=== PATIENT | male | born 1985 | race Caucasian/White ===

== ENCOUNTER → 2016-09-01 | Outpatient (REF) | payer BC ==
[~2016-09-01] MED LIST: CIPR500S PO; FLAG500T PO; HYDR12.55 PO; LISI40TAB PO; NICO21DI5 TD; OMEP20CA3 PO; VITA100T2 PO; ZEST1TAB6 PO; ZYLO300T4 PO
[2016-09-01 19:34] LABS: FREE T4 0.92 NG/DL (0.76-1.46)
[2016-09-02 09:17] LABS: THYROID PEROXIDASE ANTIBODY > 1300.0 U/ML (<60.0)
== END ==
LOC: M LABSMT 17:05
PROVIDERS: ATTEND Physician Assistant
DX: E03.9 Hypothyroidism, unspecified (principal)

== ENCOUNTER → 2016-12-01 | Outpatient (CLI) | payer BC ==
[~2016-12-01] MED LIST changes: +LEVO200T4; +LEVO200T4 PO; +LOSA25TA8 PO; +LOSA50TA20; +LOSA50TA20 PO; +METO50TA7; +METO50TA7 PO; +NICO2GUM40; +PRED20TA PO
[2016-12-01 13:24] LABS: FREE T4 0.86 NG/DL (0.76-1.46)
== END ==
LOC: M WUC 09:01
PROVIDERS: ATTEND Physician Assistant
DX: E06.3 Autoimmune thyroiditis (principal)

== ENCOUNTER 2016-12-27 09:51 | Emergency (ER) | payer BC ==
[~2016-12-27] VITALS: Ht 170.2 cm; Wt 99.1 kg
[~2016-12-27 09:51] MED LIST changes: -LEVO200T4; -LEVO200T4 PO; -LOSA25TA8 PO; -LOSA50TA20; -LOSA50TA20 PO; -METO50TA7; -METO50TA7 PO; -NICO2GUM40; -PRED20TA PO
[2016-12-27] MEDS ORDERED: NICO2GUM40 (09:59)
[2016-12-27] MEDS ORDERED: LOSA50TA20 (09:59)
[2016-12-27] MEDS ORDERED: LEVO200T4 (09:59)
[2016-12-27] MEDS ORDERED: METO50TA7 (09:59)
[2016-12-27 11:29] LABS: BASO # 0.1 K/mm3 (0.0-0.2); BASO % 0.7 % (0.0-1.0); EOS # 0.2 K/mm3 (0.0-0.50); EOS % 1.8 % (0.0-3.0); LARGE UNSTAINED CELL # 0.1 K/mm3 (0.0-0.4); LARGE UNSTAINED CELL % 0.7 % (0.0-4.0); LYMPH # 1.4 K/mm3 (1.5-4.5); LYMPH % 14.4 % (24.0-44.0); MEAN CORPUSCULAR HEMOGLOBIN 33.2 pg (27.0-33.0); MEAN CORPUSCULAR HGB CONC 34.9 g/dl (32.0-36.5); MONO # 0.3 K/mm3 (0.0-0.8); MONO % 3.3 % (0.0-5.0); NEUTROPHILS # 7.6 K/mm3 (1.8-7.7); NEUTROPHILS % 79.1 % (36.0-66.0); PLATELET COUNT, AUTOMATED 208 k/mm3 (150-450); RED CELL DISTRIBUTION WIDTH 13.2 % (11.5-14.5); WHITE BLOOD COUNT 9.6 K/mm3 (4.0-10.0)
[2016-12-27 11:47] LABS: ALBUMIN 3.8 GM/DL (3.2-5.2); ALBUMIN/GLOBULIN RATIO 1.12 (1.00-1.93); ALKALINE PHOSPHATASE 87 U/L (45-117); ALT/SGPT 44 U/L (12-78); ANION GAP 7 MEQ/L (8-16); AST/SGOT 31 U/L (15-37); BILIRUBIN,TOTAL 0.4 MG/DL (0.2-1.0); BLOOD UREA NITROGEN 14 MG/DL (7-18); CARBON DIOXIDE LEVEL 27 MEQ/L (21-32); CHLORIDE LEVEL 110 MEQ/L (98-107); GLOMERULAR FILTRATION RATE > 60.0 (>60); GLUCOSE, FASTING 91 MG/DL (70-105); POTASSIUM SERUM 4.3 MEQ/L (3.5-5.1); SODIUM LEVEL 144 MEQ/L (136-145); TOTAL PROTEIN 7.2 GM/DL (6.4-8.2)
[2016-12-27] MEDS ORDERED: GASTROGRAFIN SOLUTION 30ML (Q9963) PO ONE (12:30)
[2016-12-27] MEDS ORDERED: GASTROGRAFIN SOLUTION 30ML PO ONE (13:00)
[2016-12-27] MEDS ORDERED: ISOVUE-370 76% 100ML VIAL (Q9967) As Ordered ONE (14:02)
[2016-12-27 14:18] VITALS: BP 134/82
[2016-12-27] MEDS ORDERED: PRED20TA PO (14:40)
[2016-12-27] MEDS ORDERED: predniSONE 20 MG TAB PO ONE (14:45)
--- NOTE | 2016-12-28 12:37 | REP ---
CT ABDOMEN PELVIS WITH IV AND ORAL CONTRAST: HISTORY: Abdominal pain. Comparison study is from December 20, 2013. CT CONTRAST DOSE: 100 mL of Isovue 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 The lung bases are clear. There is no evidence of pleural effusion or upper abdominal ascites. The liver and the spleen are normal in size and homogeneous in texture. No adrenal lesion is seen. There is an accessory splenule again noted. The kidneys enhance symmetrically and are morphologically intact. No pancreatic or gallbladder abnormality is seen. There is mild diffuse mural thickening involving the sigmoid colon, distal descending colon and the rectosigmoid colon. This may reflect enterocolitis. There is a pattern of some intramural fat in the wall of the remainder the colon. This can be seen in patients with old inflammatory bowel disease. A normal appendix is observed. No obstructive lesion is seen. The small bowel loops are unremarkable today with the exception of the distal most ileal loop which shows mural thickening and some intramural fat as well. The prior CT study showed a more prominent pattern of distal small bowel mural thickening. The distal colonic mural thickening is new. SI joints are unremarkable. There is a bilateral L5 spondylolysis without spondylolisthesis. IMPRESSION: 1. Mural thickening in the distal descending through rectosigmoid segment of the colon; question inflammatory bowel disease. Evidence of old inflammatory bowel disease in the right colon. Some mural thickening and intramural fat in the distal ileum. No obstruction. 2. Bilateral spondylolysis at L5 without spondylolisthesis. 3. Normal appendix. 4. Otherwise unremarkable CT abdomen and pelvis. Signed by Ezio Hamlin MD 12/28/2016 12:41 P
[2017-02-23] MEDS ORDERED: LOSA25TA8 PO (16:55)
[2017-02-23] MEDS ORDERED: METO50TA7 PO (16:55)
[2017-02-23] MEDS ORDERED: LEVO200T4 PO (16:55)
[2017-02-23] MEDS ORDERED: LOSA50TA20 PO (16:55)
== END 2016-12-27 15:03 | disposition home or self-care (01) ==
LOC: M ED 09:51
DX: K58.9 Irritable bowel syndrome, unspecified (principal); F17.210 Nicotine dependence, cigarettes, uncomplicated; Z88.5 Allergy status to narcotic agent; Z88.6 Allergy status to analgesic agent
CPT/HCPCS: 36415; 74177; 80053; 81001; 83690; 85025; 99284; Q9963; Q9967

== ENCOUNTER 2017-03-02 10:38 | Day surgery (SDC) | payer BC ==
[~2017-03-02] VITALS: Ht 170.2 cm; Wt 94.3 kg
[~2017-03-02 10:38] MED LIST changes: +LEVO200T4; +LEVO200T4 PO; +LOSA25TA8 PO; +LOSA50TA20; +LOSA50TA20 PO; +METO50TA7; +METO50TA7 PO; +NICO2GUM40; +PRED20TA PO
[2017-03-02] MEDS ORDERED: NS 1,000 ML IV SCH (11:00)
[2017-03-02] MEDS ORDERED: PROPOFOL 200 MG/20 ML VIAL As Ordered ONE (12:25)
[2017-03-02] MEDS ORDERED: LIDOCAINE 2% INJ 100 MG/5 ML SDV (FOR ANES.) As Ordered ONE (12:25)
--- NOTE | 2017-03-02 12:56 | ROOR ---
Patient Name: Domingo Don Procedure Date: 03/02/2017 12:21 PM Date of : 1985 Age: 32 Room: [facility] Gender: Male Note Status: Finalized Procedure: Colonoscopy Indications: Hematochezia, Abnormal CT of the GI tract Providers: Davey Howe MD Referring MD: LIZANDRO Jones Requesting Provider: Medicines: Monitored Anesthesia Care Complications: No immediate complications. Procedure: Pre-Anesthesia Assessment: - Prior to the procedure, a History and Physical was performed, and patient medications and allergies were reviewed. The patient is competent. The risks and benefits of the procedure and the sedation options and risks were discussed with the patient. All questions were answered and informed consent was obtained. Patient identification and proposed procedure were verified by the physician, the nurse and the shrimp peeling machine operator in the procedure room. Mental Status Examination: alert and oriented. Airway Examination: normal oropharyngeal airway and neck mobility. Respiratory Examination: clear to auscultation. CV Examination: normal. Prophylactic Antibiotics: The patient does not require prophylactic antibiotics. Prior Anticoagulants: The patient has taken no previous anticoagulant or antiplatelet agents. ASA Grade Assessment: II - A patient with mild systemic disease. After reviewing the risks and benefits, the patient was deemed in satisfactory condition to undergo the procedure. The anesthesia plan was to use monitored anesthesia care (MAC). Immediately prior to administration of medications, the patient was re-assessed for adequacy to receive sedatives. The heart rate, respiratory rate, oxygen saturations, blood pressure, adequacy of pulmonary ventilation, and response to care were monitored throughout the procedure. The physical status of the patient was re-assessed after the procedure. The Colonoscope was introduced through the anus and advanced to the terminal ileum, with identification of the appendiceal orifice and IC valve. The colonoscopy was performed without difficulty. The patient tolerated the procedure well. The quality of the bowel preparation was adequate to identify polyps 6 mm and larger in size and fair. The terminal ileum, ileocecal valve, appendiceal orifice, and rectum were photographed. Scope insertion time was 2 minutes. Scope withdrawal time was 8 minutes. The total duration of the procedure was 10 minutes. Findings: The perianal and digital rectal examinations were normal. Two sessile polyps were found in the descending colon. The polyps were 3 to 4 mm in size. These polyps were removed with a cold biopsy forceps. Resection and retrieval were complete. Verification of patient identification for the specimen was done by the physician and nurse using the patient's name, date and medical record number. Estimated blood loss was minimal. A 5 mm polyp was found in the sigmoid colon. The polyp was sessile. The polyp was removed with a cold biopsy forceps. Resection and retrieval were complete. Non-bleeding external and internal hemorrhoids were found during retroflexion. The hemorrhoids were medium-sized. Impression: - Preparation of the colon was fair. - Two 3 to 4 mm polyps in the descending colon, removed with a cold biopsy forceps. Resected and retrieved. - One 5 mm polyp in the sigmoid colon, removed with a cold biopsy forceps. Resected and retrieved. - Non-bleeding external and internal hemorrhoids. Recommendation: - Patient has a contact number available for emergencies. The signs and symptoms of potential delayed complications were discussed with the patient. Return to normal activities tomorrow. Written discharge instructions were provided to the patient. - Resume previous diet. - Continue present medications. - Await pathology results. - Repeat colonoscopy in 5-10 years for surveillance based on pathology results. - Return to GI clinic as previously scheduled on 03/24/2017 at 10:00 AM. - Return to primary care physician. Davey Howe MD Davey Howe MD 03/02/2017 12:55:54 PM This report has been signed electronically. Number of Addenda: 0 Note Initiated On: 03/02/2017 12:21 PM Estimated Blood Loss: Estimated blood loss was minimal.
[2017-03-02 13:10] VITALS: BP 139/100
== END 2017-03-02 13:21 | disposition home or self-care (01) ==
LOC: M OPP 10:38 → EDSTATUS 14:30
PROVIDERS: ATTEND Internal Medicine Gastroenterology
DX: K92.1 Melena (principal); K64.8 Other hemorrhoids; K63.5 Polyp of colon; R93.3 Abnormal findings on diagnostic imaging of other parts of digestive tract; I10 Essential (primary) hypertension; K21.9 Gastro-esophageal reflux disease without esophagitis; M10.9 Gout, unspecified; G47.30 Sleep apnea, unspecified; E03.9 Hypothyroidism, unspecified; F17.210 Nicotine dependence, cigarettes, uncomplicated; I25.10 Atherosclerotic heart disease of native coronary artery without angina pectoris; Z85.118 Personal history of other malignant neoplasm of bronchus and lung; Z79.899 Other long term (current) drug therapy; Z88.6 Allergy status to analgesic agent; Z88.5 Allergy status to narcotic agent

== ENCOUNTER → 2018-05-24 | Outpatient (REF) | payer BC ==
[~2018-05-24] MED LIST changes: +LOSA25TA14 PO; -LOSA25TA8 PO; -LOSA50TA20; -LOSA50TA20 PO; +LOSA50TA88; +LOSA50TA88 PO; -NICO21DI5 TD; +NICO21DI6 TD; -VITA100T2 PO; +VITA100T8 PO; -ZYLO300T4 PO; +ZYLO300T6 PO
[2018-05-25 14:08] LABS: FREE T4 0.34 NG/DL (0.76-1.46); THYROID STIMULATING HORMONE 67.7 uIU/ML (0.358-3.740)
== END ==
LOC: M LAB REF 13:12
PROVIDERS: ATTEND Internal Medicine Nephrology
DX: E03.9 Hypothyroidism, unspecified (principal)

== ENCOUNTER → 2019-08-16 | Outpatient (REF) | payer BC ==
[~2019-08-16] MED LIST changes: +LISI40TA52 PO; -LISI40TAB PO; +OMEP1CAP73 PO; -OMEP20CA3 PO
[2019-08-16 13:48] LABS: FREE T4 1.47 NG/DL (0.76-1.46); THYROID STIMULATING HORMONE 2.89 uIU/ML (0.358-3.740)
== END ==
LOC: M LAB REF 12:45
PROVIDERS: ATTEND Nurse Practitioner Family
DX: E03.9 Hypothyroidism, unspecified (principal)

== ENCOUNTER → 2020-09-03 | Outpatient (CLI) | payer BC ==
--- NOTE | 2020-09-03 10:29 | REP ---
INDICATION: CHRONIC KIDNEY DISEASE, STAGE 2,NEOPLASM OF UNCERTAIN. COMPARISON: None. TECHNIQUE: Real-time sonographic evaluation of thyroid performed. FINDINGS: Right lobe of thyroid measures 4.1 x 1.6 x 1.5 cm and left lobe 4.0 x 1.4 x 1.4 cm. Both lobes are markedly heterogeneous in echotexture. An ill-defined nodule is seen in the mid right lobe measuring 9 mm in diameter. No other definite focal nodule is seen bilaterally. IMPRESSION: Heterogeneous nonenlarged thyroid. Ill-defined hypoechoic nodule mid right lobe measures 9 mm in maximum diameter. According to TI-RADS criteria this is a TR 4 lesion and no follow-up is needed since it is less than 1 cm in diameter. <Electronically signed by Jamin San > 09/03/20 [id number]
--- NOTE | 2020-09-03 10:36 | REP ---
INDICATION: CHRONIC KIDNEY DISEASE, STAGE 2,NEOPLASM OF uncertain behavior. COMPARISON: 11/30/2014 TECHNIQUE: Real-time sonographic evaluation of the kidneys is performed. Duplex Doppler evaluation of renal arteries. FINDINGS: Renal cortical echogenicity pattern is normal bilaterally and contours are smooth. There is no evidence of hydronephrosis, cyst, mass, or calculus in either kidney. The right kidney measures 11.3 x 6.1 x 5.6 cm. Left renal dimensions are 11.4 x 6.1 x 6.2 cm. Urinary bladder is not well distended. Ureteral jets are not seen in the urinary bladder with Doppler color evaluation. Duplex Doppler evaluation of renal arteries demonstrates no compelling duplex Doppler sonographic evidence of hemodynamically significant stenosis of the renal arteries bilaterally. The peak systolic velocity of the abdominal aorta at the level of the renal arteries is 109.4 centimeters/second. The peak systolic velocity of the main right renal artery is 90.2 centimeters/second, renal to aortic ratio 0.8. Resistive indices right kidney range between 0.57 and 0.60. Acceleration times range between 0.028 and 0.034. Peak systolic velocity of the main left renal artery is 88.2 centimeter/second, renal to aortic ratio 0.8. Resistive indices left kidney range between 0.48 and 0.56. Acceleration times range between 0.008 and 0.041. IMPRESSION: No renal abnormalities. No compelling duplex Doppler sonographic evidence of hemodynamically significant stenosis of the renal arteries bilaterally. <Electronically signed by Jamin San > 09/03/20 [id number]
== END ==
LOC: M RAD 09:33
PROVIDERS: ATTEND Nurse Practitioner Family
DX: N18.2 Chronic kidney disease, stage 2 (mild) (principal); D44.0 Neoplasm of uncertain behavior of thyroid gland; I12.9 Hypertensive chronic kidney disease with stage 1 through stage 4 chronic kidney disease, or unspecified chronic kidney disease

== ENCOUNTER 2021-02-02 13:54 | Emergency (ER) | payer BC ==
[~2021-02-02] VITALS: Ht 172.7 cm; Wt 92.1 kg
[2021-02-02] MEDS ORDERED: AMLO1TAB24 (14:16)
[2021-02-02] MEDS ORDERED: LOSA100T5 (14:16)
[2021-02-02] MEDS ORDERED: METO1TAB7 (14:16)
[2021-02-02] MEDS ORDERED: ALLO300T2 (14:16)
[2021-02-02 15:46] LABS: BASO # 0.1 10^3/uL (0.0-0.2); BASO % 0.4 % (0.0-1.0); EOS # 0.2 10^3/uL (0.0-0.5); EOS % 1.3 % (0.0-3.0); HEMATOCRIT 52.1 % (42.0-52.0); HEMOGLOBIN 17.7 g/dl (13.5-17.5); LYMPH # 1.9 10^3/uL (1.5-5.0); LYMPH % 11.7 % (24.0-44.0); MEAN CORPUSCULAR HEMOGLOBIN 32.2 pg (27.0-33.0); MEAN CORPUSCULAR VOLUME 94.7 fl (80.0-96.0); MONO # 0.9 10^3/uL (0.0-0.8); MONO % 5.7 % (2.0-8.0); NEUTROPHILS # 12.7 10^3/uL (1.5-8.5); NEUTROPHILS % 80.1 % (36.0-66.0); PLATELET COUNT, AUTOMATED 258 10^3/uL (150-450); WHITE BLOOD COUNT 15.8 10^3/uL (4.0-10.0)
[2021-02-02 16:18] LABS: BILIRUBIN,DIRECT 0.2 MG/DL (0.0-0.2); BILIRUBIN,TOTAL 0.6 MG/DL (0.2-1.0); C REACTIVE PROTEIN QUANTITATIV 1.51 MG/DL (0.00-0.30); TOTAL PROTEIN 7.7 GM/DL (6.4-8.2)
[2021-02-02] MEDS ORDERED: NS 1,000 ML IV ONE (16:25)
[2021-02-02] MEDS ORDERED: ONDANSETRON 4MG/2ML VIAL IV ONE (16:25)
[2021-02-02] MEDS ORDERED: MORPHINE 2 MG/ML 1ML VIAL (J2270) IV ONE (16:25)
[2021-02-02] MEDS ORDERED: KETOROLAC 30 MG/ML 1ML VIAL IV ONE ×2 (16:25→16:30)
[2021-02-02] MEDS: GASTROGRAFIN SOLUTION 30ML PO SCH ×2 (17:34→17:58)
[2021-02-02] MEDS ORDERED: ISOVUE-370 76% 100ML VIAL As Ordered ONE (18:38)
--- NOTE | 2021-02-02 20:23 | REPVR ---
PROCEDURE INFORMATION: Exam: CT Abdomen And Pelvis With Contrast Exam date and time: 02/02/2021 6:41 PM Age: 36 years old Clinical indication: Abdominal pain; Additional info: Po and iv, abdominal pain, nausea, diarrhea TECHNIQUE: Imaging protocol: Computed tomography of the abdomen and pelvis with contrast. Axial, coronal and sagittal reformatted images were created and reviewed. Radiation optimization: All CT scans at this facility use at least one of these dose optimization techniques: automated exposure control; mA and/or kV adjustment per patient size (includes targeted exams where dose is matched to clinical indication); or iterative reconstruction. Contrast material: ISOVUE 370; Contrast volume: 100 ml; Contrast route: INTRAVENOUS (IV); COMPARISON: CT ABD/PEL W/IV ORAL CONTRAS 12/27/2016 1:59 PM FINDINGS: Lungs: Minimal linear stranding and groundglass at the left lung base, likely due to atelectasis and/or scarring. Liver: Mild hepatomegaly. Gallbladder and bile ducts: No radiodense gallstones. No biliary ductal dilatation. Pancreas: Unremarkable. Spleen: Unremarkable. Adrenal glands: Normal. No mass. Kidneys and ureters: No mass. No radiodense calculi. No hydronephrosis. Stomach and bowel: Moderately long segment of moderate to severe distal/terminal ileal wall thickening with associated mural edema, luminal narrowing and mesenteric edema. Submucosal fat deposition in the colon, consistent with chronic inflammation. Questionable mild superimposed colonic wall thickening. No obstruction. No pneumatosis. Appendix: Normal. Intraperitoneal space: Trace ascites. No organized collection. No free air. Vasculature: Unremarkable. No aneurysm. Lymph nodes: No pathologically enlarged lymph nodes. Urinary bladder: Unremarkable as visualized. Reproductive: Unremarkable. Bones/joints: No acute osseous abnormality. Mild degenerative changes. Soft tissues: Unremarkable. IMPRESSION: 1. Nonspecific distal/terminal ileitis and possible mild acute on chronic colitis, as described above. 2. Additional findings, as above. Electronically signed by: Mark Rodriguez On 02/02/2021 20:22:29 PM
[2021-02-02] MEDS ORDERED: PRED20TA PO (21:23)
[2021-02-02] MEDS ORDERED: methylPREDNISolone 125MG 2ML VIAL IV ONE (21:25)
[2021-02-02 22:00] VITALS: BP 139/93
--- NOTE | 2021-02-03 05:59 | ECGEPIP ---
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
== END 2021-02-02 22:01 | disposition home or self-care (01) ==
LOC: M ED 13:54
DX: K51.918 Ulcerative colitis, unspecified with other complication (principal); R19.7 Diarrhea, unspecified; I10 Essential (primary) hypertension; F17.200 Nicotine dependence, unspecified, uncomplicated; Z88.6 Allergy status to analgesic agent
CPT/HCPCS: 74177; 80047; 80076; 81001; 83605; 83690; 85025; 86140; 87505; 93005; 96361; 96374; 96375; 99284; J1885; J2405; J2930; Q9963; Q9967

== ENCOUNTER → 2022-05-13 | Outpatient (REF) | payer BC ==
[~2022-05-13] MED LIST changes: +ALLO300T2; +AMLO1TAB24; +LOSA100T5; +LOSA25TA13 PO; -LOSA25TA14 PO; +LOSA50TA28; +LOSA50TA28 PO; -LOSA50TA88; -LOSA50TA88 PO; +METO1TAB7
[2022-05-13 17:34] LABS: HEMATOCRIT 49.3 % (42.0-52.0); HEMOGLOBIN 17.1 g/dl (13.5-17.5); MEAN CORPUSCULAR HEMOGLOBIN 34.7 pg (27.0-33.0); MEAN CORPUSCULAR HGB CONC 34.7 g/dl (32.0-36.5); PLATELET COUNT, AUTOMATED 198 10^3/uL (150-450); RED BLOOD COUNT 4.93 10^6/uL (4.30-6.10); WHITE BLOOD COUNT 13.5 10^3/uL (4.0-10.0)
[2022-05-13 17:58] LABS: ALBUMIN 4.1 G/DL (3.2-5.2); ALKALINE PHOSPHATASE 87 U/L (46-116); ALT/SGPT 20 U/L (7.0-40); AST/SGOT 22 U/L (<34); BILIRUBIN,TOTAL 1.1 MG/DL (0.3-1.2); BLOOD UREA NITROGEN 13 MG/DL (9-23); CALCIUM LEVEL 9.4 MG/DL (8.5-10.1); CARBON DIOXIDE LEVEL 24 MMOL/L (20-31); CHLORIDE LEVEL 96 MMOL/L (98-107); CHOLESTEROL LEVEL 167 MG/DL (<200); CREATININE FOR GFR 0.82 MG/DL (0.70-1.30); GLOMERULAR FILTRATION RATE > 60.0 (>60); GLUCOSE, FASTING 77 MG/DL (60-100); HDL CHOLESTEROL 66.6 MG/DL (>40); NON-HDL-C 100 MG/DL; POTASSIUM SERUM 3.5 MMOL/L (3.5-5.1); SODIUM LEVEL 135 MMOL/L (136-145); TOTAL 25(OH) VITAMIN D 10.2 NG/ML (20.0-100.0); TOTAL PROTEIN 7.1 G/DL (5.7-8.2); TRIGLYCERIDES LEVEL 302 MG/DL (<150)
[2022-05-13 17:59] LABS: THYROID STIMULATING HORMONE 5.078 uIU/ML (0.55-4.78)
[2022-05-13 18:10] LABS: URIC ACID 5.9 MG/DL (3.7-9.2)
== END ==
LOC: M LAB REF 16:21
PROVIDERS: ATTEND Physician Assistant
DX: E55.9 Vitamin D deficiency, unspecified (principal); I10 Essential (primary) hypertension; E03.9 Hypothyroidism, unspecified; M10.9 Gout, unspecified

== ENCOUNTER → 2022-08-13 | Outpatient (REF) | payer BC ==
[2022-08-13 18:22] LABS: BASO # 0.1 10^3/uL (0.0-0.2); BASO % 0.8 % (0.0-1.0); EOS # 0.1 10^3/uL (0.0-0.5); EOS % 1.4 % (0.0-3.0); HEMATOCRIT 47.2 % (42.0-52.0); HEMOGLOBIN 15.9 g/dl (13.5-17.5); LYMPH # 1.7 10^3/uL (1.5-5.0); LYMPH % 19.6 % (24.0-44.0); MEAN CORPUSCULAR HEMOGLOBIN 33.8 pg (27.0-33.0); MEAN CORPUSCULAR HGB CONC 33.7 g/dl (32.0-36.5); MEAN CORPUSCULAR VOLUME 100.2 fl (80.0-96.0); MONO # 0.5 10^3/uL (0.0-0.8); MONO % 5.3 % (2.0-8.0); NEUTROPHILS # 6.1 10^3/uL (1.5-8.5); NEUTROPHILS % 72.1 % (36.0-66.0); PLATELET COUNT, AUTOMATED 238 10^3/uL (150-450); RED BLOOD COUNT 4.71 10^6/uL (4.30-6.10); WHITE BLOOD COUNT 8.5 10^3/uL (4.0-10.0)
[2022-08-13 18:37] LABS: BLOOD UREA NITROGEN 14 MG/DL (9-23); CALCIUM LEVEL 9.4 MG/DL (8.5-10.1); CARBON DIOXIDE LEVEL 25 MMOL/L (20-31); CHLORIDE LEVEL 106 MMOL/L (98-107); CREATININE FOR GFR 0.82 MG/DL (0.70-1.30); GLOMERULAR FILTRATION RATE > 60.0 (>60); GLUCOSE, FASTING 85 MG/DL (60-100); POTASSIUM SERUM 4.7 MMOL/L (3.5-5.1); SODIUM LEVEL 139 MMOL/L (136-145)
[2022-08-13 18:38] LABS: THYROID STIMULATING HORMONE 0.202 uIU/ML (0.55-4.78); TOTAL 25(OH) VITAMIN D 19.2 NG/ML (20.0-100.0)
[2022-08-13 18:39] LABS: FOLATE 8.9 NG/ML (>5.4); VITAMIN B12 LEVEL 319 PG/ML (211-911)
== END ==
LOC: M LAB REF 16:27
PROVIDERS: ATTEND Physician Assistant
DX: F10.10 Alcohol abuse, uncomplicated (principal); R71.8 Other abnormality of red blood cells; E55.9 Vitamin D deficiency, unspecified; E03.9 Hypothyroidism, unspecified

== ENCOUNTER → 2022-10-28 | Outpatient (REF) | payer BC ==
[2022-10-28 17:23] LABS: FREE T4 1.06 NG/DL (0.89-1.76); THYROID STIMULATING HORMONE 13.984 uIU/ML (0.55-4.78); TOTAL 25(OH) VITAMIN D 20.1 NG/ML (20.0-100.0)
[2022-10-28 17:48] LABS: HIV 1&2 SCREEN NEGATIVE (NEGATIVE)
[2022-10-28 18:10] LABS: THYROID PEROXIDASE ANTIBODY > 1300.0 U/ML (<60.0)
== END ==
LOC: M LAB REF 16:34
PROVIDERS: ATTEND Physician Assistant
DX: E03.9 Hypothyroidism, unspecified (principal); E55.9 Vitamin D deficiency, unspecified; Z11.4 Encounter for screening for human immunodeficiency virus [HIV]

== ENCOUNTER → 2023-04-26 | Outpatient (REF) | payer BC ==
[2023-04-26 18:06] LABS: HEMOGLOBIN A1c 4.6 % (4.0-6.0)
[2023-04-26 18:20] LABS: ALKALINE PHOSPHATASE 60 U/L (46-116); ALT/SGPT 19 U/L (7.0-40); AST/SGOT 24 U/L (<34); BILIRUBIN,TOTAL 0.4 MG/DL (0.3-1.2); BLOOD UREA NITROGEN 13 MG/DL (9-23); CALCIUM LEVEL 9.3 MG/DL (8.5-10.1); CARBON DIOXIDE LEVEL 24 MMOL/L (20-31); CHLORIDE LEVEL 105 MMOL/L (98-107); CHOLESTEROL LEVEL 146 MG/DL (<200); CHOLESTEROL RISK RATIO 2.06 (<5); CREATININE FOR GFR 0.76 MG/DL (0.70-1.30); GLOMERULAR FILTRATION RATE > 60.0 (>60); GLUCOSE, FASTING 93 MG/DL (60-100); HDL CHOLESTEROL 70.7 MG/DL (>40); LDL CHOLESTEROL 40.9 MG/DL (<100); MAGNESIUM LEVEL 1.9 MG/DL (1.8-2.4); NON-HDL-C 75.3 MG/DL; POTASSIUM SERUM 4.5 MMOL/L (3.5-5.1); SODIUM LEVEL 137 MMOL/L (136-145); TOTAL PROTEIN 6.6 G/DL (5.7-8.2); TRIGLYCERIDES LEVEL 172 MG/DL (<150)
== END ==
LOC: M LAB REF 17:29
PROVIDERS: ATTEND Nurse Practitioner Family
DX: E78.1 Pure hyperglyceridemia (principal); I10 Essential (primary) hypertension; E03.8 Other specified hypothyroidism; Z13.1 Encounter for screening for diabetes mellitus

== ENCOUNTER 2023-09-21 15:08 | Emergency (ER) | payer BC ==
[~2023-09-21] VITALS: Ht 172.7 cm; Wt 91.6 kg
[2023-09-21] MEDS ORDERED: LOPI600T PO (15:18)
[2023-09-21 16:38] LABS: BASO % 0.3 % (0.0-1.0); EOS % 0.1 % (0.0-3.0); HEMATOCRIT 41.9 % (42.0-52.0); HEMOGLOBIN 15.1 g/dl (13.5-17.5); LYMPH # 1.3 10^3/uL (1.5-5.0); LYMPH % 9.7 % (24.0-44.0); MEAN CORPUSCULAR HEMOGLOBIN 34.6 pg (27.0-33.0); MEAN CORPUSCULAR VOLUME 96.1 fl (80.0-96.0); MONO # 0.7 10^3/uL (0.0-0.8); MONO % 5.4 % (2.0-8.0); NEUTROPHILS # 11.5 10^3/uL (1.5-8.5); NEUTROPHILS % 84.2 % (36.0-66.0); PLATELET COUNT, AUTOMATED 254 10^3/uL (150-450); RED BLOOD COUNT 4.36 10^6/uL (4.30-6.10); WHITE BLOOD COUNT 13.7 10^3/uL (4.0-10.0)
[2023-09-21 16:43] LABS: ERYTHROCYTE SEDIMENTATION RATE 6 mm/hr (0-15)
[2023-09-21 17:06] LABS: C REACTIVE PROTEIN QUANTITATIV < 0.40 MG/DL (<1.0)
[2023-09-21 17:07] LABS: BLOOD UREA NITROGEN 17 MG/DL (9-23); CALCIUM LEVEL 9.2 MG/DL (8.5-10.1); CARBON DIOXIDE LEVEL 24 MMOL/L (20-31); CHLORIDE LEVEL 107 MMOL/L (98-107); CREATININE FOR GFR 1.05 MG/DL (0.70-1.30); GLOMERULAR FILTRATION RATE > 60.0 (>60); GLUCOSE, FASTING 90 MG/DL (60-100); POTASSIUM SERUM 3.8 MMOL/L (3.5-5.1); SODIUM LEVEL 141 MMOL/L (136-145)
[2023-09-21 18:43] LABS: CK-MB VALUE MASS < 1.0 NG/ML (<3.6)
[2023-09-21 18:54] LABS: THYROID STIMULATING HORMONE 0.411 uIU/ML (0.55-4.78)
[2023-09-21 18:55] LABS: FREE T4 1.18 NG/DL (0.89-1.76)
[2023-09-21 19:01] LABS: CPK CREATINE PHOSPHOKINASE 69 U/L (46-171); MB/CK RELATIVE INDEX 1.44 (< OR =4)
[2023-09-21 20:20] VITALS: BP 156/98; TEMP 98.9; O2SAT 97
[2023-09-21] MEDS ORDERED: DOXY-323 PO (20:34)
[2023-09-21] MEDS: DOXYCYCLINE HYCLATE 100MG TABLET PO ONE (21:05)
== END 2023-09-21 21:06 | disposition home or self-care (01) ==
LOC: M ED 15:08
DX: S20.96XA Insect bite (nonvenomous) of unspecified parts of thorax, initial encounter (principal); R60.9 Edema, unspecified; I10 Essential (primary) hypertension; K21.9 Gastro-esophageal reflux disease without esophagitis; E03.9 Hypothyroidism, unspecified; N17.1 Acute kidney failure with acute cortical necrosis; F17.200 Nicotine dependence, unspecified, uncomplicated; F12.10 Cannabis abuse, uncomplicated; F10.10 Alcohol abuse, uncomplicated; Z88.5 Allergy status to narcotic agent; Z88.6 Allergy status to analgesic agent; Z79.899 Other long term (current) drug therapy; Z79.811 Long term (current) use of aromatase inhibitors; Y92.9 Unspecified place or not applicable; Y93.9 Activity, unspecified; Y99.9 Unspecified external cause status

== ENCOUNTER → 2023-12-01 | Outpatient (REF) | payer BC ==
[~2023-12-01] MED LIST changes: +DOXY-323 PO; +LOPI600T PO
[2023-12-01 19:08] LABS: BLOOD UREA NITROGEN 17 MG/DL (9-23); CALCIUM LEVEL 9.1 MG/DL (8.5-10.1); CARBON DIOXIDE LEVEL 24 MMOL/L (20-31); CHLORIDE LEVEL 106 MMOL/L (98-107); GLOMERULAR FILTRATION RATE 55.5 (>60); GLUCOSE, FASTING 75 MG/DL (60-100); POTASSIUM SERUM 3.1 MMOL/L (3.5-5.1); SODIUM LEVEL 140 MMOL/L (136-145)
[2023-12-01 19:15] LABS: THYROID STIMULATING HORMONE > 150.000 uIU/ML (0.55-4.78)
== END ==
LOC: M LAB REF 17:05
PROVIDERS: ATTEND Physician Assistant
DX: E06.3 Autoimmune thyroiditis (principal); I12.9 Hypertensive chronic kidney disease with stage 1 through stage 4 chronic kidney disease, or unspecified chronic kidney disease; R60.0 Localized edema

== ENCOUNTER → 2024-01-05 | Outpatient (CLI) | payer BC | LOC: M SLEEP HO 11:43 | PROVIDERS: ATTEND Physician Assistant | DX: R06.81 Apnea, not elsewhere classified (principal) ==

== ENCOUNTER → 2024-01-31 | Outpatient (CLI) | payer BC ==
[2024-01-31 17:06] LABS: FREE T4 1.06 NG/DL (0.89-1.76)
[2024-01-31 17:07] LABS: THYROID STIMULATING HORMONE 47.082 uIU/ML (0.55-4.78)
== END ==
LOC: M WUC 14:20
PROVIDERS: ATTEND Nurse Practitioner Family
DX: E03.9 Hypothyroidism, unspecified (principal)

== ENCOUNTER → 2024-03-21 | Outpatient (CLI) | payer BC ==
[~2024-03-21] MED LIST changes: -DOXY-323 PO; +DOXY-441 PO
== END ==
LOC: M RAD 11:11
PROVIDERS: ATTEND Nurse Practitioner Family
DX: E04.1 Nontoxic single thyroid nodule (principal)

== ENCOUNTER → 2024-04-10 | Outpatient (REF) | payer BC ==
[2024-04-10 20:47] LABS: FREE T4 1.13 NG/DL (0.89-1.76)
[2024-04-10 20:49] LABS: THYROID STIMULATING HORMONE 10.474 uIU/ML (0.55-4.78)
== END ==
LOC: M LABWUC 16:46 → M LAB REF 16:46
PROVIDERS: ATTEND Nurse Practitioner Family
DX: E06.3 Autoimmune thyroiditis (principal)

== ENCOUNTER → 2024-04-26 | Outpatient (CLI) | payer BC ==
[~2024-04-26] MED LIST changes: -ALLO300T2; +ALLO300T2 PO; -AMLO1TAB24; +AMLO1TAB24 PO; +CEFD1CAP9 PO; +DOXY100T PO; +FURO20TA2 PO; +LEVO150T7 PO; +LOSA100T46 PO; -METO1TAB7; +METO1TAB7 PO; +POTA-298 PO
== END ==
LOC: M SLEEP 20:00
PROVIDERS: ATTEND Physician Assistant
DX: G47.33 Obstructive sleep apnea (adult) (pediatric) (principal)

== ENCOUNTER 2024-04-30 11:19 | Inpatient (IN) | payer BC ==
[~2024-04-30] VITALS: Ht 157.5 cm; Wt 92.4 kg
[~2024-04-30 11:19] MED LIST changes: -FURO20TA2 PO; -LEVO150T7 PO; -LOSA100T46 PO; -POTA-298 PO
[2024-04-30] MEDS: NS (Normal Saline) 0.9% 1,000 ML IV ONE ×2 (11:52→14:58)
[2024-04-30] MEDS: ACETAMINOPHEN 325 MG TAB PO ONE (11:52)
[2024-04-30 12:19] LABS: BASO # 0.1 10^3/uL (0.0-0.2); BASO % 0.4 % (0.0-1.0); EOS % 0.1 % (0.0-3.0); HEMATOCRIT 34.3 % (42.0-52.0); HEMOGLOBIN 12.2 g/dl (13.5-17.5); LYMPH # 0.4 10^3/uL (1.5-5.0); LYMPH % 2.6 % (24.0-44.0); MEAN CORPUSCULAR HEMOGLOBIN 33.7 pg (27.0-33.0); MEAN CORPUSCULAR HGB CONC 35.6 g/dl (32.0-36.5); MEAN CORPUSCULAR VOLUME 94.8 fl (80.0-96.0); MONO # 0.5 10^3/uL (0.0-0.8); MONO % 3.1 % (2.0-8.0); NEUTROPHILS # 14.4 10^3/uL (1.5-8.5); NEUTROPHILS % 92.5 % (36.0-66.0); PLATELET COUNT, AUTOMATED 146 10^3/uL (150-450); RED BLOOD COUNT 3.62 10^6/uL (4.30-6.10); WHITE BLOOD COUNT 15.6 10^3/uL (4.0-10.0)
[2024-04-30] MEDS: cefTRIAXone SOD 1 GM in DEXTROSE 5% (D5W) ADV/MINI-BAG 50 ML IV ONE (12:54)
[2024-04-30] MEDS: AZITHROMYCIN 250MG TABLET PO ONE (12:55)
[2024-04-30] MEDS ORDERED: cefTRIAXone SOD 1 GM in DEXTROSE 5% (D5W) ADV/MINI-BAG 50 ML IV SCH (13:00)
[2024-04-30 13:52] LABS: ALBUMIN 2.4 G/DL (3.2-5.2); ALKALINE PHOSPHATASE 48 U/L (40-129); ALT/SGPT 38 U/L (7.0-40); AST/SGOT 149 U/L (<34); BILIRUBIN,DIRECT 0.3 MG/DL (<0.4); BILIRUBIN,TOTAL 0.5 MG/DL (0.3-1.2); BLOOD UREA NITROGEN 13 MG/DL (9-23); CALCIUM LEVEL 8.2 MG/DL (8.5-10.1); CARBON DIOXIDE LEVEL 21 MMOL/L (20-31); CHLORIDE LEVEL 97 MMOL/L (98-107); CREATININE FOR GFR 1.13 MG/DL (0.70-1.30); GLOMERULAR FILTRATION RATE > 60.0 (>60); GLUCOSE, FASTING 126 MG/DL (60-100); POTASSIUM SERUM 3.2 MMOL/L (3.5-5.1); SODIUM LEVEL 129 MMOL/L (136-145); TOTAL PROTEIN 5.9 G/DL (5.7-8.2)
[2024-04-30] MEDS: POTASSIUM CHLORIDE 10MEQ SR TABLET PO ONE (14:57)
[2024-04-30] MEDS ORDERED: LEVO150T7 PO (15:31)
[2024-04-30] MEDS ORDERED: POTA-298 PO (15:31)
[2024-04-30] MEDS ORDERED: LOSA100T46 PO (15:31)
[2024-04-30] MEDS ORDERED: FURO20TA2 PO (15:31)
[2024-04-30] MEDS ORDERED: HOME MED LIST COMPLETE! XX SCH (15:35)
[2024-04-30] MEDS ORDERED: MOM 30ML SUSPENSION UDC PO PRN (16:15)
[2024-04-30] MEDS: ACETAMINOPHEN 325 MG TAB PO PRN (16:47)
[2024-04-30] MEDS: ACETAMINOPHEN *IV* 1,000 MG in IV 1 EA IV ONE (17:55)
[2024-04-30 23:20] VITALS: BP 146/93; TEMP 101.9; O2SAT 94
[2024-05-01] VITALS (20 sets, daily range): BP systolic 116–144; BP diastolic 66–88; TEMP 97.8–104.1; O2SAT 87–94
[2024-05-01] MEDS: LEVOTHYROXINE 150MCG TABLET (0.15MG) PO SCH (05:55)
[2024-05-01 06:00] LABS: HEMATOCRIT 34.4 % (42.0-52.0); HEMOGLOBIN 11.9 g/dl (13.5-17.5); MEAN CORPUSCULAR HEMOGLOBIN 33.4 pg (27.0-33.0); MEAN CORPUSCULAR HGB CONC 34.6 g/dl (32.0-36.5); MEAN CORPUSCULAR VOLUME 96.6 fl (80.0-96.0); PLATELET COUNT, AUTOMATED 150 10^3/uL (150-450); RED BLOOD COUNT 3.56 10^6/uL (4.30-6.10); WHITE BLOOD COUNT 10.4 10^3/uL (4.0-10.0)
[2024-05-01 06:19] LABS: ALBUMIN 2.2 G/DL (3.2-5.2); ALKALINE PHOSPHATASE 58 U/L (40-129); ALT/SGPT 43 U/L (7.0-40); AST/SGOT 137 U/L (<34); BILIRUBIN,TOTAL 0.4 MG/DL (0.3-1.2); BLOOD UREA NITROGEN 14 MG/DL (9-23); CALCIUM LEVEL 8.8 MG/DL (8.5-10.1); CARBON DIOXIDE LEVEL 20 MMOL/L (20-31); CHLORIDE LEVEL 103 MMOL/L (98-107); CREATININE FOR GFR 0.99 MG/DL (0.70-1.30); GLOMERULAR FILTRATION RATE > 60.0 (>60); GLUCOSE, FASTING 114 MG/DL (60-100); POTASSIUM SERUM 3.4 MMOL/L (3.5-5.1); SODIUM LEVEL 134 MMOL/L (136-145)
[2024-05-01 06:31] LABS: PROCALCITONIN 9.22 ng/ml
[2024-05-01] MEDS: FUROSEMIDE 20 MG TAB PO SCH (08:00)
[2024-05-01] MEDS: METOPROLOL SUCC (TopROL XL) 50MG **XL** TAB PO SCH (08:00)
[2024-05-01] MEDS: AZITHROMYCIN 250MG TABLET PO SCH (08:00)
[2024-05-01] MEDS: allopurinoL 300 MG TAB PO SCH (08:00)
[2024-05-01] MEDS: POTASSIUM CHLORIDE 10MEQ SR TABLET PO SCH (08:01)
[2024-05-01] MEDS: amLODIPine 5 MG TAB PO SCH (08:01)
[2024-05-01] MEDS: LOSARTAN 50MG TABLET PO SCH (08:01)
[2024-05-01] MEDS: guaiFENesin ER TABLET 600 MG TAB PO SCH (09:45)
[2024-05-01] MEDS: FOLIC ACID 1MG TAB PO SCH (09:45)
[2024-05-01] MEDS: MULTIVITAMINS/MINERALS THERAP 1 TAB PO SCH (09:46)
[2024-05-01] MEDS: THIAMINE 100 MG TAB PO SCH (09:46)
[2024-05-01] MEDS: IPRATROPIUM 0.5MG/ALBUTEROL 2.5MG INH SOL UD 3ML (DUONEB) NEB SCH (11:38)
[2024-05-01] MEDS ORDERED: ISOVUE-370 76% 100ML VIAL As Ordered ONE (11:56)
[2024-05-01] MEDS: LR 1,000 ML IV ONE ×2 (12:42→13:54)
[2024-05-01] MEDS: cefTRIAXone SOD 1 GM in DEXTROSE 5% (D5W) ADV/MINI-BAG 50 ML IV SCH (13:25)
[2024-05-01] MEDS ORDERED: IBUPROFEN 400MG TAB PO PRN (18:05)
[2024-05-01] MEDS: cefTRIAXone SOD 1 GM in DEXTROSE 5% (D5W) ADV/MINI-BAG 50 ML IV ONE (18:41)
[2024-05-01] MEDS: KETOROLAC 30 MG/ML 1ML VIAL IV PRN (18:41)
[2024-05-01] MEDS: DOXYCYCLINE HYCLATE 100 MG in DEXTROSE 5% (D5W) MINI-BAG PLU 100 ML IV SCH (19:58)
[2024-05-01] MEDS: chlordiazePOXIDE 25 MG CAP PO SCH (21:06)
[2024-05-01] MEDS: LORazepam 2 MG TAB PO PRN (21:24)
[2024-05-01] MEDS: LORazepam 2 MG/ML 1ML VIAL IV STA (23:40)
[2024-05-02] VITALS (37 sets, daily range): BP systolic 98–157; BP diastolic 53–91; TEMP 99.5–103.3; O2SAT 88–95
[2024-05-02] MEDS: LORazepam 2 MG/ML 1ML VIAL IV PRN (00:58)
[2024-05-02 02:00] LABS: VENOUS BASE EXCESS -5.2 (-2.0-2.0); VENOUS HCO3 20.6 MMOL/L (23.0-27.0); VENOUS O2 SATURATION 75.2 % (60.0-80.0); VENOUS PARTIAL PRESSURE CO2 40.9 mmHg (38.0-50.0); VENOUS PARTIAL PRESSURE O2 45.3 mmHg (30.0-50.0); VENOUS PH 7.319 UNITS (7.330-7.430); VENOUS STANDARD HCO3 19.7 MMOL/L; VENOUS TOTAL CO2 21.8 MMOL/L (24.0-28.0)
[2024-05-02] MEDS: IPRATROPIUM 0.5MG/ALBUTEROL 2.5MG INH SOL UD 3ML (DUONEB) NEB ONE (02:00)
[2024-05-02] MEDS: ACETAMINOPHEN *IV* 1,000 MG in IV 1 EA IV ONE (03:49)
[2024-05-02] MEDS ORDERED: ACETAMINOPHEN *IV* 1,000 MG in IV 1 EA IV ONE (04:00)
[2024-05-02 06:03] LABS: PROCALCITONIN 7.97 ng/ml
[2024-05-02 06:08] LABS: ALKALINE PHOSPHATASE 66 U/L (40-129); ALT/SGPT 53 U/L (7.0-40); AST/SGOT 149 U/L (<34); BILIRUBIN,TOTAL 0.3 MG/DL (0.3-1.2); BLOOD UREA NITROGEN 17 MG/DL (9-23); C REACTIVE PROTEIN QUANTITATIV 20.14 MG/DL (<1.0); CALCIUM LEVEL 8.3 MG/DL (8.5-10.1); CARBON DIOXIDE LEVEL 21 MMOL/L (20-31); CHLORIDE LEVEL 105 MMOL/L (98-107); CREATININE FOR GFR 1.02 MG/DL (0.70-1.30); GLOMERULAR FILTRATION RATE > 60.0 (>60); GLUCOSE, FASTING 107 MG/DL (60-100); POTASSIUM SERUM 3.2 MMOL/L (3.5-5.1); SODIUM LEVEL 137 MMOL/L (136-145); TOTAL PROTEIN 5.4 G/DL (5.7-8.2)
[2024-05-02 06:41] LABS: HEMATOCRIT 31.7 % (42.0-52.0); HEMOGLOBIN 11.3 g/dl (13.5-17.5); MEAN CORPUSCULAR HGB CONC 35.6 g/dl (32.0-36.5); MEAN CORPUSCULAR VOLUME 95.5 fl (80.0-96.0); PLATELET COUNT, AUTOMATED 167 10^3/uL (150-450); RED BLOOD COUNT 3.32 10^6/uL (4.30-6.10); WHITE BLOOD COUNT 8.5 10^3/uL (4.0-10.0)
[2024-05-02 06:45] LABS: LYMPHOCYTES 4 % (16-44); MONOCYTES 1 % (0-5); NEUTROPHILS 90 % (28-66)
[2024-05-02 06:46] LABS: PLATELET ESTIMATE NORMAL (NORMAL)
[2024-05-02 06:48] LABS: TOXIC VACUOLATION 2+
[2024-05-02] MEDS ORDERED: AZITHROMYCIN INJ 500 MG, VIAL MATE ADAPTER 1 EACH in NS 250 ML IV SCH (09:00)
[2024-05-02] MEDS: FUROSEMIDE 40MG/4ML VIAL IV ONE (09:15)
[2024-05-02] MEDS: cefTRIAXone SOD 2 GM in DEXTROSE 5% (D5W) ADV/MINI-BAG 50 ML IV SCH (09:16)
[2024-05-02] MEDS: POTASSIUM CHLORIDE 10MEQ SR TABLET PO SCH (11:00)
[2024-05-02] MEDS ORDERED: PIPERACILLIN/TAZOBACTAM SOD 3.375 GM in DEXTROSE 5% (D5W) ADV/MINI-BAG 50 ML IV SCH (12:40)
[2024-05-02] MEDS: diazePAM 10MG/2ML SYRINGE IV ONE (13:19)
[2024-05-02] MEDS: dexmedeTOMidine 200 MCG in IV 1 EA IV SCH (13:27)
[2024-05-02 13:32] LABS: VENOUS BASE EXCESS -0.1 (-2.0-2.0); VENOUS HCO3 22.5 MMOL/L (23.0-27.0); VENOUS O2 SATURATION 99.3 % (60.0-80.0); VENOUS PARTIAL PRESSURE CO2 30.5 mmHg (38.0-50.0); VENOUS PARTIAL PRESSURE O2 274.1 mmHg (30.0-50.0); VENOUS PH 7.486 UNITS (7.330-7.430); VENOUS STANDARD HCO3 24.5 MMOL/L; VENOUS TOTAL CO2 23.4 MMOL/L (24.0-28.0)
[2024-05-02] MEDS: diazePAM 10MG/2ML SYRINGE IV STA ×2 (13:34→13:45)
[2024-05-02] MEDS: PIPERACILLIN/TAZOBACTAM SOD 4.5 GM in DEXTROSE 5% (D5W) ADV/MINI-BAG 50 ML IV SCH (13:36)
[2024-05-02 15:27] LABS: VENOUS BASE EXCESS -0.1 (-2.0-2.0); VENOUS O2 SATURATION 99.3 % (60.0-80.0); VENOUS PARTIAL PRESSURE CO2 32.6 mmHg (38.0-50.0); VENOUS PARTIAL PRESSURE O2 200.1 mmHg (30.0-50.0); VENOUS PH 7.467 UNITS (7.330-7.430); VENOUS STANDARD HCO3 24.5 MMOL/L
[2024-05-02] MEDS: LEVOTHYROXINE 100MCG (0.1MG) 5ML SDV PF (SOLUTION FORM) IV SCH (16:23)
[2024-05-02] MEDS: POTASSIUM CHLORIDE INJ 20 MEQ in LR 1,000 ML IV SCH (16:23)
[2024-05-02] MEDS: METOPROLOL 5 MG/5 ML VIAL IV SCH (16:24)
[2024-05-02] MEDS: diazePAM 10MG/2ML SYRINGE IV SCH (17:35)
[2024-05-02] MEDS: ACETAMINOPHEN *IV* 1,000 MG in IV 1 EA IV PRN (20:01)
[2024-05-02 21:16] LABS: VENOUS BASE EXCESS -0.8 (-2.0-2.0); VENOUS PARTIAL PRESSURE CO2 30.3 mmHg (38.0-50.0); VENOUS PARTIAL PRESSURE O2 234.5 mmHg (30.0-50.0); VENOUS PH 7.478 UNITS (7.330-7.430); VENOUS STANDARD HCO3 23.9 MMOL/L; VENOUS TOTAL CO2 22.9 MMOL/L (24.0-28.0)
[2024-05-02 21:52] LABS: BLOOD UREA NITROGEN 18 MG/DL (9-23); CALCIUM LEVEL 8.3 MG/DL (8.5-10.1); CARBON DIOXIDE LEVEL 24 MMOL/L (20-31); CHLORIDE LEVEL 106 MMOL/L (98-107); CREATININE FOR GFR 1.03 MG/DL (0.70-1.30); GLOMERULAR FILTRATION RATE > 60.0 (>60); GLUCOSE, FASTING 104 MG/DL (60-100); MAGNESIUM LEVEL 2.1 MG/DL (1.8-2.4); POTASSIUM SERUM 3.6 MMOL/L (3.5-5.1); SODIUM LEVEL 139 MMOL/L (136-145)
[2024-05-03] VITALS (42 sets, daily range): BP systolic 117–148; BP diastolic 70–94; TEMP 97.3–102.7; O2SAT 85–99
[2024-05-03 03:36] LABS: VENOUS BASE EXCESS -2.3 (-2.0-2.0); VENOUS HCO3 22.4 MMOL/L (23.0-27.0); VENOUS O2 SATURATION 93.7 % (60.0-80.0); VENOUS PARTIAL PRESSURE CO2 38.2 mmHg (38.0-50.0); VENOUS PH 7.386 UNITS (7.330-7.430); VENOUS STANDARD HCO3 22.5 MMOL/L; VENOUS TOTAL CO2 23.6 MMOL/L (24.0-28.0)
[2024-05-03 03:39] LABS: BASO # 0.1 10^3/uL (0.0-0.2); BASO % 0.5 % (0.0-1.0); EOS % 0.1 % (0.0-3.0); HEMATOCRIT 35.7 % (42.0-52.0); HEMOGLOBIN 12.3 g/dl (13.5-17.5); LYMPH # 0.4 10^3/uL (1.5-5.0); MEAN CORPUSCULAR HEMOGLOBIN 33.3 pg (27.0-33.0); MEAN CORPUSCULAR HGB CONC 34.5 g/dl (32.0-36.5); MEAN CORPUSCULAR VOLUME 96.7 fl (80.0-96.0); MONO # 0.2 10^3/uL (0.0-0.8); MONO % 2.3 % (2.0-8.0); NEUTROPHILS # 9.1 10^3/uL (1.5-8.5); PLATELET COUNT, AUTOMATED 230 10^3/uL (150-450); RED BLOOD COUNT 3.69 10^6/uL (4.30-6.10); WHITE BLOOD COUNT 10.2 10^3/uL (4.0-10.0)
[2024-05-03 04:03] LABS: MAGNESIUM LEVEL 2.3 MG/DL (1.8-2.4); PHOSPHORUS LEVEL 3.5 MG/DL (2.5-4.9)
[2024-05-03 04:12] LABS: PROCALCITONIN 5.19 ng/ml
[2024-05-03 04:13] LABS: ALBUMIN 2.2 G/DL (3.2-5.2); ALKALINE PHOSPHATASE 81 U/L (40-129); ALT/SGPT 62 U/L (7.0-40); AST/SGOT 132 U/L (<34); BILIRUBIN,TOTAL 0.5 MG/DL (0.3-1.2); BLOOD UREA NITROGEN 20 MG/DL (9-23); CALCIUM LEVEL 8.8 MG/DL (8.5-10.1); CARBON DIOXIDE LEVEL 24 MMOL/L (20-31); CHLORIDE LEVEL 108 MMOL/L (98-107); CREATININE FOR GFR 0.93 MG/DL (0.70-1.30); GLOMERULAR FILTRATION RATE > 60.0 (>60); GLUCOSE, FASTING 96 MG/DL (60-100); POTASSIUM SERUM 4.2 MMOL/L (3.5-5.1); SODIUM LEVEL 141 MMOL/L (136-145); TOTAL PROTEIN 5.9 G/DL (5.7-8.2)
[2024-05-03] MEDS ORDERED: ALBUTEROL 90 MCG/ACT 8GM HFA INHALER INH PRN (05:15)
[2024-05-03] MEDS ORDERED: IPRATROPIUM 0.5MG/ALBUTEROL 2.5MG INH SOL UD 3ML (DUONEB) NEB PRN (05:55)
[2024-05-03 06:05] LABS: ABG HCO3 21.6 MMOL/L (22.0-26.0); ABG O2 SATURATION 97.7 % (95.0-99.0); ABG PARTIAL PRESSURE CO2 29.9 mmHg (35.0-45.0); ABG STANDARD HCO3 23.6 MMOL/L. (22.0-26.0); ABG TOTAL CO2 22.5 MMOL/L (22.0-29.0); ABG pH (ARTERIAL) 7.477 UNITS (7.350-7.450)
[2024-05-03] MEDS ORDERED: DEXTROSE 50% 50ML SYRINGE As Ordered ONE (06:42)
[2024-05-03] MEDS: DEXTROSE 50% 50ML SYRINGE IV STA (06:44)
[2024-05-03] MEDS: THIAMINE 200MG 2ML VIAL IV SCH (08:50)
[2024-05-03] MEDS ORDERED: cefTRIAXone SOD 2 GM in DEXTROSE 5% (D5W) ADV/MINI-BAG 50 ML IV SCH (09:00)
[2024-05-03] MEDS ORDERED: PANTOPRAZOLE 40MG VIAL IV SCH (09:00)
[2024-05-03] MEDS ORDERED: THIAMINE 200MG 2ML VIAL IM SCH (09:00)
[2024-05-03 09:17] LABS: VENOUS BASE EXCESS -3.7 (-2.0-2.0); VENOUS HCO3 22.7 MMOL/L (23.0-27.0); VENOUS O2 SATURATION 79.6 % (60.0-80.0); VENOUS PARTIAL PRESSURE CO2 46.1 mmHg (38.0-50.0); VENOUS PARTIAL PRESSURE O2 48.4 mmHg (30.0-50.0); VENOUS PH 7.311 UNITS (7.330-7.430); VENOUS TOTAL CO2 24.2 MMOL/L (24.0-28.0)
[2024-05-03] MEDS: PANTOPRAZOLE 40MG TAB (PROTONIX) PO SCH (11:15)
[2024-05-03] MEDS: METOPROLOL SUCC (TopROL XL) 50MG **XL** TAB PO SCH (11:16)
[2024-05-03] MEDS: ENOXAPARIN 40MG/0.4ML SYRINGE (J1650 PER 10MG) SC SCH (11:16)
[2024-05-03 18:41] LABS: VENOUS BASE EXCESS -2.5 (-2.0-2.0); VENOUS HCO3 20.7 MMOL/L (23.0-27.0); VENOUS O2 SATURATION 97.7 % (60.0-80.0); VENOUS PARTIAL PRESSURE CO2 30.9 mmHg (38.0-50.0); VENOUS PARTIAL PRESSURE O2 103.3 mmHg (30.0-50.0); VENOUS PH 7.443 UNITS (7.330-7.430); VENOUS STANDARD HCO3 22.4 MMOL/L; VENOUS TOTAL CO2 21.6 MMOL/L (24.0-28.0)
[2024-05-04] VITALS (23 sets, daily range): BP systolic 113–158; BP diastolic 65–88; TEMP 96.7–103; O2SAT 88–98
[2024-05-04 05:36] LABS: BASO % 0.3 % (0.0-1.0); EOS % 0.3 % (0.0-3.0); HEMATOCRIT 31.1 % (42.0-52.0); HEMOGLOBIN 10.9 g/dl (13.5-17.5); LYMPH # 0.5 10^3/uL (1.5-5.0); LYMPH % 4.2 % (24.0-44.0); MEAN CORPUSCULAR HEMOGLOBIN 34.2 pg (27.0-33.0); MEAN CORPUSCULAR VOLUME 97.5 fl (80.0-96.0); MONO # 0.2 10^3/uL (0.0-0.8); MONO % 2.1 % (2.0-8.0); NEUTROPHILS % 88.8 % (36.0-66.0); PLATELET COUNT, AUTOMATED 291 10^3/uL (150-450); RED BLOOD COUNT 3.19 10^6/uL (4.30-6.10); WHITE BLOOD COUNT 11.2 10^3/uL (4.0-10.0)
[2024-05-04 06:09] LABS: PROCALCITONIN 2.44 ng/ml
[2024-05-04 06:13] LABS: ALBUMIN 1.8 G/DL (3.2-5.2); ALKALINE PHOSPHATASE 143 U/L (40-129); ALT/SGPT 91 U/L (7.0-40); AST/SGOT 198 U/L (<34); BILIRUBIN,TOTAL 0.7 MG/DL (0.3-1.2); BLOOD UREA NITROGEN 17 MG/DL (9-23); CALCIUM LEVEL 8.4 MG/DL (8.5-10.1); CARBON DIOXIDE LEVEL 23 MMOL/L (20-31); CHLORIDE LEVEL 105 MMOL/L (98-107); CREATININE FOR GFR 0.89 MG/DL (0.70-1.30); GLOMERULAR FILTRATION RATE > 60.0 (>60); GLUCOSE, FASTING 97 MG/DL (60-100); MAGNESIUM LEVEL 2.2 MG/DL (1.8-2.4); POTASSIUM SERUM 3.7 MMOL/L (3.5-5.1); SODIUM LEVEL 138 MMOL/L (136-145); TOTAL PROTEIN 5.3 G/DL (5.7-8.2)
[2024-05-04] MEDS ORDERED: IPRATROPIUM 0.5MG/ALBUTEROL 2.5MG INH SOL UD 3ML (DUONEB) NEB PRN (09:10)
[2024-05-04] MEDS: HYDROCORTISONE 100MG/2ML VIAL IV SCH (09:35)
[2024-05-04 15:57] LABS: URINE STREP PNEUMONIAE ANTIGEN NOT DETECTED (NOT DETECT)
[2024-05-05] VITALS (29 sets, daily range): BP systolic 108–138; BP diastolic 59–94; TEMP 96.6–97.9; O2SAT 89–96
[2024-05-05 04:02] LABS: HEMATOCRIT 32.9 % (42.0-52.0); HEMOGLOBIN 11.3 g/dl (13.5-17.5); MEAN CORPUSCULAR HEMOGLOBIN 33.8 pg (27.0-33.0); MEAN CORPUSCULAR HGB CONC 34.3 g/dl (32.0-36.5); MEAN CORPUSCULAR VOLUME 98.5 fl (80.0-96.0); PLATELET COUNT, AUTOMATED 312 10^3/uL (150-450); RED BLOOD COUNT 3.34 10^6/uL (4.30-6.10); WHITE BLOOD COUNT 11.3 10^3/uL (4.0-10.0)
[2024-05-05 04:31] LABS: ALBUMIN 1.7 G/DL (3.2-5.2); ALKALINE PHOSPHATASE 139 U/L (40-129); ALT/SGPT 88 U/L (7.0-40); AST/SGOT 126 U/L (<34); BILIRUBIN,TOTAL 0.4 MG/DL (0.3-1.2); BLOOD UREA NITROGEN 20 MG/DL (9-23); CALCIUM LEVEL 8.5 MG/DL (8.5-10.1); CARBON DIOXIDE LEVEL 24 MMOL/L (20-31); CHLORIDE LEVEL 109 MMOL/L (98-107); GLOMERULAR FILTRATION RATE > 60.0 (>60); GLUCOSE, FASTING 117 MG/DL (60-100); MAGNESIUM LEVEL 2.7 MG/DL (1.8-2.4); POTASSIUM SERUM 4.2 MMOL/L (3.5-5.1); SODIUM LEVEL 141 MMOL/L (136-145); TOTAL PROTEIN 5.5 G/DL (5.7-8.2)
[2024-05-05] MEDS: cefTRIAXone SOD 2 GM in DEXTROSE 5% (D5W) ADV/MINI-BAG 50 ML IV SCH (10:32)
[2024-05-05 19:07] LABS: BORRELIA SPECIES DNA NOT DETECTED (NOT DETECT)
[2024-05-05] MEDS: DOXYCYCLINE HYCLATE 100MG TABLET PO SCH (20:01)
[2024-05-05 20:28] LABS: LYME TOTAL ANTIBODY CIA <= 0.90 Index (<=0.90)
[2024-05-05 22:03] LABS: Anaplasma phagocytophilum NOT DETECTED (NOT DETECT)
[2024-05-05 22:08] LABS: Babesia microti NOT DETECTED (NOT DETECT); Ehrlichia chaffeensis NOT DETECTED (NOT DETECT)
[2024-05-06] VITALS (19 sets, daily range): BP systolic 130–147; BP diastolic 80–87; TEMP 97.3–98.6; O2SAT 94–99
[2024-05-06] MEDS: LEVOTHYROXINE 150MCG TABLET (0.15MG) PO SCH (05:18)
[2024-05-06 05:27] LABS: HEMOGLOBIN 11.7 g/dl (13.5-17.5); MEAN CORPUSCULAR HEMOGLOBIN 33.1 pg (27.0-33.0); MEAN CORPUSCULAR HGB CONC 33.4 g/dl (32.0-36.5); MEAN CORPUSCULAR VOLUME 99.2 fl (80.0-96.0); PLATELET COUNT, AUTOMATED 396 10^3/uL (150-450); RED BLOOD COUNT 3.53 10^6/uL (4.30-6.10); WHITE BLOOD COUNT 12.7 10^3/uL (4.0-10.0)
[2024-05-06 06:00] LABS: ALBUMIN 1.9 G/DL (3.2-5.2); ALKALINE PHOSPHATASE 138 U/L (40-129); ALT/SGPT 117 U/L (7.0-40); AST/SGOT 140 U/L (<34); BILIRUBIN,TOTAL 0.3 MG/DL (0.3-1.2); BLOOD UREA NITROGEN 28 MG/DL (9-23); CALCIUM LEVEL 8.6 MG/DL (8.5-10.1); CARBON DIOXIDE LEVEL 24 MMOL/L (20-31); CHLORIDE LEVEL 111 MMOL/L (98-107); CREATININE FOR GFR 0.78 MG/DL (0.70-1.30); GLOMERULAR FILTRATION RATE > 60.0 (>60); GLUCOSE, FASTING 139 MG/DL (60-100); POTASSIUM SERUM 3.8 MMOL/L (3.5-5.1); SODIUM LEVEL 143 MMOL/L (136-145); TOTAL PROTEIN 5.5 G/DL (5.7-8.2)
[2024-05-06] MEDS: THIAMINE 100 MG TAB PO SCH (10:11)
[2024-05-06] MEDS: cefTRIAXone SOD 2 GM in DEXTROSE 5% (D5W) ADV/MINI-BAG 50 ML IV SCH (10:12)
[2024-05-06] MEDS: HYDROCORTISONE 100MG/2ML VIAL IV ONE (16:33)
[2024-05-06] MEDS: NICOTINE 21MG/24HR 1 EA TRANSDERMAL TD SCH (16:33)
[2024-05-07] VITALS (10 sets, daily range): BP systolic 130–156; BP diastolic 80–89; TEMP 97.7–97.8; O2SAT 94–99
[2024-05-07 05:26] LABS: HEMATOCRIT 36.8 % (42.0-52.0); HEMOGLOBIN 12.3 g/dl (13.5-17.5); MEAN CORPUSCULAR HEMOGLOBIN 33.7 pg (27.0-33.0); MEAN CORPUSCULAR HGB CONC 33.4 g/dl (32.0-36.5); MEAN CORPUSCULAR VOLUME 100.8 fl (80.0-96.0); PLATELET COUNT, AUTOMATED 435 10^3/uL (150-450); RED BLOOD COUNT 3.65 10^6/uL (4.30-6.10)
[2024-05-07 05:45] LABS: ALBUMIN 2.1 G/DL (3.2-5.2); ALKALINE PHOSPHATASE 118 U/L (40-129); ALT/SGPT 129 U/L (7.0-40); AST/SGOT 98 U/L (<34); BILIRUBIN,TOTAL 0.3 MG/DL (0.3-1.2); BLOOD UREA NITROGEN 23 MG/DL (9-23); CALCIUM LEVEL 8.7 MG/DL (8.5-10.1); CARBON DIOXIDE LEVEL 24 MMOL/L (20-31); CHLORIDE LEVEL 114 MMOL/L (98-107); CREATININE FOR GFR 0.82 MG/DL (0.70-1.30); GLOMERULAR FILTRATION RATE > 60.0 (>60); GLUCOSE, FASTING 88 MG/DL (60-100); POTASSIUM SERUM 3.8 MMOL/L (3.5-5.1); SODIUM LEVEL 149 MMOL/L (136-145); TOTAL PROTEIN 5.3 G/DL (5.7-8.2)
[2024-05-07] MEDS ORDERED: CEFD1CAP9 PO (08:07)
[2024-05-07] MEDS ORDERED: DOXY100T PO (08:07)
[2024-05-07] MEDS: HYDROCORTISONE 100MG/2ML VIAL IV SCH (09:05)
[2024-05-09] MEDS ORDERED: HYDROCORTISONE 100MG/2ML VIAL IV SCH (09:00)
[2024-05-11] MEDS ORDERED: HYDROCORTISONE 100MG/2ML VIAL IV SCH (09:00)
== END 2024-05-07 10:47 | disposition home or self-care (01) | DRG 720 ==
LOC: M ED 11:19 → M ED INP 16:15 → M MSPAV 23:16 → M PCU 05-01 13:05 → M MSPAV 05-01 13:06 → M PCU 05-01 14:12 → M ICU 05-02 13:13 → M PCU 05-05 15:45
PROVIDERS: ADMIT Student in an Organized Health Care Education/Training Program; ATTEND Internal Medicine
PROC: 06HM33Z Insertion of Infusion Device into Right Femoral Vein, Percutaneous Approach (ICD-10-PCS; principal; 2024-05-04)
DX: A41.9 Sepsis, unspecified organism (principal); J96.01 Acute respiratory failure with hypoxia; J15.69 Pneumonia due to other Gram-negative bacteria; I10 Essential (primary) hypertension; E03.9 Hypothyroidism, unspecified; F17.200 Nicotine dependence, unspecified, uncomplicated; M10.9 Gout, unspecified; I89.0 Lymphedema, not elsewhere classified; R65.20 Severe sepsis without septic shock; Z88.5 Allergy status to narcotic agent; Z88.6 Allergy status to analgesic agent; Z79.899 Other long term (current) drug therapy; E87.1 Hypo-osmolality and hyponatremia; F10.231 Alcohol dependence with withdrawal delirium; G92.8 Other toxic encephalopathy

== ENCOUNTER → 2024-04-30 | Outpatient (CLI) | payer BC ==
[~2024-04-30] MED LIST changes: -CEFD1CAP9 PO; -DOXY100T PO
[2024-04-30 10:20] LABS: BASO # 0.1 10^3/uL (0.0-0.2); BASO % 0.5 % (0.0-1.0); HEMATOCRIT 38.9 % (42.0-52.0); HEMOGLOBIN 13.5 g/dl (13.5-17.5); LYMPH # 0.4 10^3/uL (1.5-5.0); LYMPH % 2.9 % (24.0-44.0); MEAN CORPUSCULAR HEMOGLOBIN 33.3 pg (27.0-33.0); MEAN CORPUSCULAR HGB CONC 34.7 g/dl (32.0-36.5); MONO # 0.4 10^3/uL (0.0-0.8); MONO % 2.6 % (2.0-8.0); NEUTROPHILS # 13.6 10^3/uL (1.5-8.5); NEUTROPHILS % 92.5 % (36.0-66.0); PLATELET COUNT, AUTOMATED 142 10^3/uL (150-450); RED BLOOD COUNT 4.05 10^6/uL (4.30-6.10); WHITE BLOOD COUNT 14.7 10^3/uL (4.0-10.0)
[2024-04-30 10:49] LABS: ALBUMIN 2.9 G/DL (3.2-5.2); ALKALINE PHOSPHATASE 57 U/L (40-129); ALT/SGPT 42 U/L (7.0-40); AST/SGOT 158 U/L (<34); BILIRUBIN,TOTAL 0.7 MG/DL (0.3-1.2); BLOOD UREA NITROGEN 13 MG/DL (9-23); CARBON DIOXIDE LEVEL 23 MMOL/L (20-31); CHLORIDE LEVEL 95 MMOL/L (98-107); CREATININE FOR GFR 1.28 MG/DL (0.70-1.30); GLOMERULAR FILTRATION RATE > 60.0 (>60); GLUCOSE, FASTING 112 MG/DL (60-100); MAGNESIUM LEVEL 1.6 MG/DL (1.8-2.4); POTASSIUM SERUM 3.4 MMOL/L (3.5-5.1); SODIUM LEVEL 129 MMOL/L (136-145); TOTAL PROTEIN 7.1 G/DL (5.7-8.2)
[2024-04-30 10:53] LABS: FREE T4 1.57 NG/DL (0.89-1.76)
[2024-04-30 10:54] LABS: THYROID STIMULATING HORMONE 2.379 uIU/ML (0.55-4.78)
== END ==
LOC: M RAD 09:45
PROVIDERS: ATTEND Registered Nurse
DX: R06.02 Shortness of breath (principal); R09.1 Pleurisy; R00.2 Palpitations; J18.9 Pneumonia, unspecified organism

== ENCOUNTER → 2024-05-30 | Outpatient (CLI) | payer BC ==
[~2024-05-30] MED LIST changes: +CEFD1CAP9 PO; +DOXY100T PO; +FURO20TA2 PO; +ISOVUE-370 76% 100ML VIAL ONE; +LEVO150T7 PO; +LOSA100T46 PO; +POTA-298 PO
== END ==
LOC: M PLAIMG 08:34
PROVIDERS: ATTEND Physician Assistant
DX: R59.0 Localized enlarged lymph nodes (principal)

== ENCOUNTER → 2024-08-14 | Outpatient (CLI) | payer BC ==
[~2024-08-14] MED LIST changes: -ISOVUE-370 76% 100ML VIAL ONE
[2024-08-14 18:45] LABS: FREE T4 1.18 NG/DL (0.89-1.76); THYROID STIMULATING HORMONE 21.503 uIU/ML (0.55-4.78)
== END ==
LOC: M WUC 14:13
PROVIDERS: ATTEND Nurse Practitioner Family
DX: E06.3 Autoimmune thyroiditis (principal)

== ENCOUNTER → 2024-09-05 | Outpatient (CLI) | payer BC | LOC: M RAD 12:51 | PROVIDERS: ATTEND Nurse Practitioner Family | DX: E04.1 Nontoxic single thyroid nodule (principal) ==

== ENCOUNTER → 2024-12-15 | Outpatient (CLI) | payer BC ==
[2024-12-15 14:00] LABS: FREE T4 1.35 NG/DL (0.89-1.76)
== END ==
LOC: M WUC 08:10
PROVIDERS: ATTEND Nurse Practitioner Family
DX: E06.3 Autoimmune thyroiditis (principal)

== ENCOUNTER → 2025-02-16 | Outpatient (REF) | payer BC ==
[2025-02-16 18:35] LABS: CHOLESTEROL LEVEL 193.0 MG/DL (<200); CHOLESTEROL RISK RATIO 1.73 (<5); LDL CHOLESTEROL 31.2 MG/DL (<100); NON-HDL-C 81.6 MG/DL; TRIGLYCERIDES LEVEL 252.0 MG/DL (<150)
== END ==
LOC: M LAB REF 17:15
PROVIDERS: ATTEND Physician Assistant
DX: E78.1 Pure hyperglyceridemia (principal)

== ENCOUNTER → 2025-03-05 | Outpatient (REF) | payer BC ==
[2025-03-05 18:27] LABS: BASO # 0.1 10^3/uL (0.0-0.2); BASO % 0.7 % (0.0-1.0); EOS # 0.1 10^3/uL (0.0-0.5); EOS % 0.6 % (0.0-3.0); LYMPH # 1.3 10^3/uL (1.5-5.0); LYMPH % 12.4 % (24.0-44.0); MONO # 0.6 10^3/uL (0.0-0.8); MONO % 5.4 % (2.0-8.0); NEUTROPHILS # 8.4 10^3/uL (1.5-8.5); NEUTROPHILS % 79.1 % (36.0-66.0); PLATELET COUNT, AUTOMATED 221 10^3/uL (150-450)
[2025-03-05 18:45] LABS: ALT/SGPT 40 U/L (7.0-40); AST/SGOT 41 U/L (<34); CALCIUM LEVEL 9.7 MG/DL (8.5-10.1); CARBON DIOXIDE LEVEL 24 MMOL/L (20-31); CHLORIDE LEVEL 105 MMOL/L (98-107); CHOLESTEROL LEVEL 181 MG/DL (<200); CHOLESTEROL RISK RATIO 2.28 (<5); CREATININE FOR GFR 0.95 MG/DL (0.70-1.30); GLOMERULAR FILTRATION RATE > 90.0 (>60); LDL CHOLESTEROL 37.2 MG/DL (<100); MAGNESIUM LEVEL 2.2 MG/DL (1.8-2.4); NON-HDL-C 101.8 MG/DL; POTASSIUM SERUM 3.9 MMOL/L (3.5-5.1); SODIUM LEVEL 139 MMOL/L (136-145); TRIGLYCERIDES LEVEL 323 MG/DL (<150)
[2025-03-05 18:46] LABS: TOTAL 25(OH) VITAMIN D 7.6 NG/ML (20.0-100.0)
[2025-03-05 19:03] LABS: ESTIMATED AVERAGE GLUCOSE 82.0 MG/DL (60-110)
== END ==
LOC: M LAB REF 17:31
PROVIDERS: ATTEND Nurse Practitioner Family
DX: E55.9 Vitamin D deficiency, unspecified (principal); Z68.32 Body mass index [BMI] 32.0-32.9, adult; E78.1 Pure hyperglyceridemia; E06.3 Autoimmune thyroiditis; F10.10 Alcohol abuse, uncomplicated

== ENCOUNTER 2025-04-08 07:15 | Emergency (ER) | payer BC ==
[~2025-04-08] VITALS: Ht 172.7 cm; Wt 90.9 kg
[2025-04-08] MEDS ORDERED: TRIA37.577 (07:25)
[2025-04-08 08:40] LABS: BASO # 0.1 10^3/uL (0.0-0.2); BASO % 0.7 % (0.0-1.0); EOS # 0.0 10^3/uL (0.0-0.5); EOS % 0.0 % (0.0-3.0); LYMPH # 1.0 10^3/uL (1.5-5.0); LYMPH % 11.7 % (24.0-44.0); MONO # 0.4 10^3/uL (0.0-0.8); MONO % 4.6 % (2.0-8.0); NEUTROPHILS # 7.4 10^3/uL (1.5-8.5); NEUTROPHILS % 82.7 % (36.0-66.0); PLATELET COUNT, AUTOMATED 161 10^3/uL (150-450)
[2025-04-08 09:09] LABS: ALT/SGPT 44 U/L (7.0-40); AST/SGOT 60 U/L (<34); CALCIUM LEVEL 8.6 MG/DL (8.5-10.1); CARBON DIOXIDE LEVEL 17 MMOL/L (20-31); CHLORIDE LEVEL 106 MMOL/L (98-107); CREATININE FOR GFR 1.05 MG/DL (0.70-1.30); FREE T4 0.86 NG/DL (0.89-1.76); GLOMERULAR FILTRATION RATE > 90.0 (>60); POTASSIUM SERUM 4.0 MMOL/L (3.5-5.1); SODIUM LEVEL 141 MMOL/L (136-145)
[2025-04-08] MEDS ORDERED: ISOVUE-370 76% 100 ML VIAL As Ordered ONE (09:28)
[2025-04-08 11:02] VITALS: O2SAT 96
[2025-04-08 11:03] VITALS: BP 143/88
[2025-04-08 11:22] VITALS: TEMP 98.3
== END 2025-04-08 11:25 | disposition home or self-care (01) ==
LOC: M ED 07:15
DX: R06.02 Shortness of breath (principal); R42 Dizziness and giddiness; R00.0 Tachycardia, unspecified; I10 Essential (primary) hypertension; K58.9 Irritable bowel syndrome, unspecified; K21.9 Gastro-esophageal reflux disease without esophagitis; F17.200 Nicotine dependence, unspecified, uncomplicated; Z88.5 Allergy status to narcotic agent; Z88.6 Allergy status to analgesic agent; Z79.2 Long term (current) use of antibiotics; Z79.899 Other long term (current) drug therapy
CPT/HCPCS: 36415; 71046; 71275; 80048; 80076; 84439; 84443; 85025; 85379; 87486; 87581; 87633; 87798; 93005; 93041; 94760; 99285; Q9967